=== PATIENT | male | born 1975 | race Caucasian/White ===

== ENCOUNTER 2017-10-19 09:29 | Emergency (ER) | payer BC ==
[2017-10-19 11:25] VITALS: BP 151/95
--- NOTE | 2017-10-19 11:31 | UC ---
UC Dental HPI - HPI Summary HPI Summary: 42 year old male presents with complains of left lower molar abscess. - History of Current Complaint Chief Complaint: UCDentalProblem Stated Complaint: DENTAL PAIN Time Seen by Provider: 10/19/17 11:28 Hx Obtained From: Patient Onset/Duration: Sudden Onset Severity: Moderate Pain Scale Used: 0-10 Numeric - 5 - Allergies/Home Medications Allergies/Adverse Reactions: Allergies Allergy/AdvReac Type Severity Reaction Status Date / Time No Known Allergies Allergy Verified 10/19/17 11:25 Home Medications: Home Medications Ibuprofen TAB* [Motrin TAB* 800 MG] 800 mg PO Q6H PRN 10/19/17 [History Confirmed 10/19/17] PMH/Surg Hx/FS Hx/Imm Hx Previously Healthy: Yes - Surgical History Surgical History: None - Family History Known Family History: Positive: None - Social History Alcohol Use: Occasionally Substance Use Type: None Smoking Status (MU): Never Smoked Tobacco Review of Systems Constitutional: Negative Skin: Negative Eyes: Negative ENT: Negative Respiratory: Negative Cardiovascular: Negative Gastrointestinal: Negative Genitourinary: Negative Motor: Negative Neurovascular: Negative Musculoskeletal: Negative Neurological: Negative Psychological: Negative All Other Systems Reviewed And Are Negative: Yes Physical Exam Triage Information Reviewed: Yes Vital Signs: Initial Vital Signs Temp 37.1 C 10/19/17 11:22 Pulse 88 10/19/17 11:22 Resp 16 10/19/17 11:22 BP 151/95 10/19/17 11:22 Vital Signs Reviewed: Yes Eye Exam: Normal ENT Exam: Normal Dental: Positive: Abscess @ Neck exam: Normal Neck: Positive: 1 Respiratory Exam: Normal Cardiovascular Exam: Normal Abdominal Exam: Normal Musculoskeletal Exam: Normal Neurological Exam: Normal Psychological Exam: Normal Skin Exam: Normal Dental Complaint Course/Dx - Differential Dx/Diagnosis Differential Diagnosis/Dx: Dental Abscess Provider Diagnoses: left lower abscess Discharge - Discharge Plan Condition: Stable Disposition: HOME Prescriptions: Amoxicillin/Clavulanate TAB* [Augmentin TAB 875*] 875 mg PO BID #20 tab Chlorhexidine MOUTHWASH 0.12%* [Peridex Mouth Wash 0.12%*] 15 ml MT TID #1 btl Magic M W2 Omero/Maal/Nyst/Lido* 5 ml SWISH SPIT QID PRN #120 ml PRN Reason: Pain Naproxen [Naprosyn 500 mg] 500 mg PO BID PRN #30 tab PRN Reason: Pain Patient Education Materials: Dental Abscess (ED) Referrals: No Primary Care Phys,NOPCP [Primary Care Provider] -
== END 2017-10-19 11:39 | disposition home or self-care (01) ==
LOC: UCCORT 09:29
DX: K04.7 Periapical abscess without sinus (principal)
CPT/HCPCS: 99202; G0463

== ENCOUNTER 2018-01-03 16:45 | Emergency (ER) | payer BC ==
[2018-01-03 17:39] VITALS: BP 132/83
[2018-01-03] MEDS ORDERED: DOXYcycline CAP(*) 100 MG PO ONE (17:47)
--- NOTE | 2018-01-03 17:47 | UC ---
UC General HPI - HPI Summary HPI Summary: PT IS C/O OF A COUGH WITH CONGESTION AND SUBJECTIVE FEVER WITH CHILLS FOR ABOUT 2 DAYS. ADMITS TO SOME WHEEZING. DENIES SOB, CHEST PAIN AND LUNG DISEASE. 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 Negative: Chest Pain, SOB - Allergy/Home Medications Allergies/Adverse Reactions: Allergies Allergy/AdvReac Type Severity Reaction Status Date / Time No Known Allergies Allergy Verified 01/03/18 17:39 PMH/Surg Hx/FS Hx/Imm Hx Previously Healthy: Yes - Surgical History Surgical History: None - Family History Known Family History: Positive: None - Social History Occupation: Employed Full-time Lives: With Family Alcohol Use: Occasionally Substance Use Type: None Smoking Status (MU): Never Smoked Tobacco - Immunization History Vaccination Up to Date: Yes Review of Systems Constitutional: Fever, Chills Skin: Negative Eyes: Negative ENT: Negative Respiratory: Cough Cardiovascular: Negative Gastrointestinal: Negative Genitourinary: Negative Motor: Negative Neurovascular: Negative Musculoskeletal: Negative Neurological: Negative Psychological: Negative Is Patient Immunocompromised?: No All Other Systems Reviewed And Are Negative: Yes Physical Exam Triage Information Reviewed: Yes Appearance: Well-Appearing Vital Signs: Initial Vital Signs Temp 97.1 F 01/03/18 17:31 Pulse 84 01/03/18 17:31 Resp 16 01/03/18 17:31 BP 132/83 01/03/18 17:31 Pulse Ox 96 01/03/18 17:31 Vital Signs Reviewed: Yes Eyes: Positive: Conjunctiva Clear ENT: Positive: Pharynx normal, TMs normal. Negative: Nasal congestion, Nasal drainage Neck: Positive: Supple, Nontender, No Lymphadenopathy Respiratory: Positive: No respiratory distress, Crackles - RLL Cardiovascular: Positive: RRR, No Murmur, Pulses Normal Abdomen Description: Positive: Nontender, No Organomegaly, Soft. Negative: Distended, Guarding Bowel Sounds: Positive: Present Musculoskeletal: Positive: ROM Intact Neurological: Positive: Alert Psychological: Positive: Normal Response To Family, Age Appropriate Behavior Skin Exam: Normal Course/Dx - Course Course Of Treatment: hx of cough, congestion, f/c's with focal findings in RLL raises concern for pneumonia thus will tx presumptively with doxycycline. - Differential Dx - Multi-Symptom Provider Diagnoses: Cough, bronchospasm, possible early pneumonia Discharge - Discharge Plan Condition: Stable Disposition: HOME Prescriptions: Albuterol HFA INHALER* [Ventolin HFA Inhaler*] 2 puff INH Q6H #1 mdi DOXYcycline CAP(*) [DOXYcycline 100MG CAP(*)] 100 mg PO BID #20 cap Patient Education Materials: Bronchospasm (ED), Acute Cough (ED) Referrals: No Primary Care Phys,NOPCP [Primary Care Provider] - Additional Instructions: FOLLOW UP WITH YOUR PRIMARY CARE AT [facility] IN 5-7 DAYS FOR A RECHECK OR SOONER IF WORSE.
== END 2018-01-03 18:03 | disposition home or self-care (01) ==
LOC: UCCORT 16:45
DX: R05 Cough (principal); J98.01 Acute bronchospasm
CPT/HCPCS: 99212; A9270-GY; G0463

== ENCOUNTER 2019-02-09 14:22 | Emergency (ER) | payer BC ==
[2019-02-09] MEDS ORDERED: NS 0.9% 1000 ML** 1,000 ML IV ONE ×2 (20:03→21:33)
[2019-02-09] MEDS ORDERED: Ondansetron INJ* 2 MG/ML VIAL IV ONE (20:03)
--- NOTE | 2019-02-09 20:09 | ED ---
Nausea/Vomiting/Diarrhea HPI - HPI Summary HPI Summary: 43-year-old male presents with one-day symptoms of nausea, GI upset and watery diarrhea. He also describes an episode of near syncope when driving. His symptoms are worsened when he stands up. He has had no vomiting, chest pain or palpitations. No others have been ill. He denies any upper respiratory symptoms. He has not had anything like this recently nor has anyone in his household. - History of Current Complaint Chief Complaint: EDAbdPain Stated Complaint: STOMACH OFF ALL/BLACKED OUT PER PT Time Seen by Provider: 02/09/19 19:58 Hx Obtained From: Patient Pain Intensity: 6 - Allergies/Home Medications Allergies/Adverse Reactions: Allergies Allergy/AdvReac Type Severity Reaction Status Date / Time No Known Allergies Allergy Verified 01/03/18 17:39 PMH/Surg Hx/FS Hx/Imm Hx Previously Healthy: Yes - borderline hypertension Infectious Disease History: No Infectious Disease History: Denies: Traveled Outside the [place] in Last 30 Days - Family History Known Family History: Positive: None, Other - no sick contacts - Social History Occupation: Employed Full-time Lives: With Family Alcohol Use: Occasionally Substance Use Type: Reports: None Smoking Status (MU): Never Smoked Tobacco Review of Systems Positive: Chills, Fatigue, Skin Diaphoresis. Negative: Fever Negative: Palpitations, Chest Pain Respiratory: Negative Positive: Diarrhea, Nausea. Negative: Abdominal Pain, Vomiting Genitourinary: Negative Negative: Syncope - does report near syncope All Other Systems Reviewed And Are Negative: Yes Physical Exam Triage Information Reviewed: Yes Vital Signs On Initial Exam: Initial Vitals Temp Pulse Resp BP Pulse Ox 97.0 F 100 18 122/72 97 02/09/19 14:31 02/09/19 14:31 02/09/19 14:31 02/09/19 14:31 02/09/19 14:31 Vital Signs Reviewed: Yes Appearance: Positive: Well-Nourished, Ill-Appearing Skin: Positive: Warm, Skin Color Reflects Adequate Perfusion, Dry Eyes: Positive: Normal ENT: Positive: Normal ENT inspection Neck: Positive: No Lymphadenopathy Respiratory/Lung Sounds: Positive: Clear to Auscultation Cardiovascular: Positive: Tachycardia Abdomen Description: Positive: Nontender, No Organomegaly, Soft Bowel Sounds: Positive: Present Musculoskeletal: Positive: Normal, Strength/ROM Intact Neurological: Positive: Sensory/Motor Intact, Alert, Oriented to Person Place, Time, Normal Gait Psychiatric: Positive: Normal Diagnostics - Vital Signs Vital Signs Temp Pulse Resp BP Pulse Ox 02/09/19 17:56 101.0 F 102 16 112/65 94 02/09/19 15:38 99.2 F 90 18 118/60 94 02/09/19 14:31 97.0 F 100 18 122/72 97 - Laboratory Result Diagrams: 02/09/19 20:20 02/09/19 20:20 Lab Statement: Any lab studies that have been ordered have been reviewed, and results considered in the medical decision making process. - EKG #1 Cardiac Rate: Tachycardia - 105 EKG Rhythm: Sinus Rhythm ST Segment: Normal Ectopy: None - nl axis Re-Evaluation - Re-Evaluation First Eval Change: Improved - Patient feel much better after IV fluids and Zofran Naus/Vom/Diarrhea Course/Dx - Course Course Of Treatment: Nurse's notes reviewed. Patient with feeling weak/near syncope associated with diarrhea and nausea. No abdominal pain. Patient developed a fever here but laboratories are fairly benign. He is feeling much better after 2 L of fluids and Zofran. We'll treat him symptomatically and he' ll follow up closely with his primary care physician. - Differential Dx/Diagnosis Differential Diagnoses - Male: Appendicitis, Pneumonia, Gall Bladder Disease, Gastroenteritis (Viral), Gastroenteritis (Bacterial) Provider Diagnosis: Acute gastroenteritis Condition At Discharge: Improved Discharge - Sign-Out/Discharge Documenting (check all that apply): Patient Departure Patient Received Moderate/Deep Sedation with Procedure: No - Discharge Plan Condition: Improved Disposition: HOME Prescriptions: Ondansetron ODT TAB* [Zofran 4 MG Odt TAB*] 4 mg PO Q6H PRN #12 tab.odt PRN Reason: Nausea Patient Education Materials: Gastroenteritis (ED) Forms: *Work Release Referrals: No Primary Care Phys,NOPCP [Primary Care Provider] - Additional Instructions: [facility]up with [facility] in [place]. [place] diet as tolerated. Drink plenty of fluids. Off work. You may start Imodium after 24 hours of diarrhea. Change positions slowly so as not to cause lightheadedness. Return if worse, high fevers, unable to keep down fluids, abdominal pain, passing out or other concerns. - Billing Disposition and Condition Condition: IMPROVED Disposition: Home - Attestation Statements Document Initiated by Scribe: No
[2019-02-09] MEDS ORDERED: Ketorolac INJ* 30 MG/ML 1 ML VIAL ONE (20:27)
[2019-02-09] MEDS ORDERED: Ketorolac INJ* 30 MG/ML 1 ML VIAL IV PUSH ONE ×2 (20:29)
[2019-02-09 20:36] LABS: ABS Basophils 0 10^3/ul (0-0.2); ABS Eosinophils 0 10^3/ul (0-0.6); ABS Lymphocytes 0.3 10^3/ul (1.0-4.8); ABS Monocytes 0.3 10^3/ul (0-0.8); ABS Neutrophils 8.8 10^3/ul (1.5-7.7); ABS Nucleated RBC 0 10^3/ul; Eosinophil % 0.1 %; Hematocrit 46 % (36-46); Hemoglobin 16.3 g/dL (14.0-18.0); Lymphocyte % 3.5 %; Mean Corpuscular HGB Conc 35 g/dL (31-36); Mean Corpuscular Hemoglobin 31 pg (27-31); Mean Corpuscular Volume 88 fL (80-94); Mean Platelet Volume 7.1 fL (7.4-10.4); Nucleated Red Blood Cells % 0; Platelet Count 233 10^3/uL (150-450); Red Blood Count 5.29 10^6 /uL (4.18-5.48); Red Cell Distribution Width 14 % (10.5-15); White Blood Count 9.5 10^3/uL (3.5-10.8)
[2019-02-09 20:51] LABS: ALT 27 U/L (7-52); AST 16 U/L (13-39); Albumin 4.3 g/dL (3.2-5.2); Albumin/Globulin Ratio 1.8 (1-3); Alkaline Phosphatase 46 U/L (34-104); Anion Gap 10 mmol/L (2-11); BUN/Creatinine Ratio 20.5 (8-20); Blood Urea Nitrogen 24 mg/dL (6-24); CO2 Carbon Dioxide 26 mmol/L (22-32); Calcium 9.2 mg/dL (8.6-10.3); Chloride 103 mmol/L (101-111); EGFR African American 82.3 (>60); Globulin 2.4 g/dL (2-4); Glucose 128 mg/dL (70-100); Potassium 4.6 mmol/L (3.5-5.0); Sodium 139 mmol/L (135-145); Total Protein 6.7 g/dL (6.4-8.9)
[2019-02-09 21:02] LABS: Influenza A Molecular NEGATIVE (Negative); Influenza B Molecular NEGATIVE (Negative)
[2019-02-09 21:44] VITALS: BP 115/70
== END 2019-02-09 22:27 | disposition home or self-care (01) ==
LOC: ED 14:22
DX: K52.9 Noninfective gastroenteritis and colitis, unspecified (principal); R55 Syncope and collapse
CPT/HCPCS: 36415; 80053; 83690; 85025; 93005; 96361; 96374; 96375; 96376; 99283; J1885; J2405